=== PATIENT | female | born 1975 | race Caucasian/White ===

== ENCOUNTER → 2016-10-02 | Outpatient (CLI) | payer OTHER ==
--- NOTE | 2016-10-03 12:01 | MM ---
Reason for exam: screening (asymptomatic). Last mammogram was performed 5 years and 5 months ago. History: Taking hormonal contraceptives for 4 years. Physical Findings: A clinical breast exam by your physician is recommended on an annual basis and results should be correlated with mammographic findings. MG Screening Mammo w CAD Bilateral CC and MLO view(s) were taken. Prior study comparison: April 19, 2011, CAD bilateral diagnostic mammogram. The breast tissue is heterogeneously dense. This may lower the sensitivity of mammography. No significant changes when compared with prior studies. ASSESSMENT: Negative, BI-RAD 1 RECOMMENDATION: Routine screening mammogram of both breasts in 1 year.
== END | disposition home or self-care (01) ==
LOC: RADMAMWWP 07:51
PROVIDERS: ATTEND Obstetrics & Gynecology
DX: Z12.31 Encounter for screening mammogram for malignant neoplasm of breast (principal)

== ENCOUNTER → 2017-12-21 | Outpatient (CLI) | payer OTHER ==
--- NOTE | 2017-12-24 10:56 | MM ---
Reason for exam: screening (asymptomatic). Last mammogram was performed 1 year and 3 months ago. History: Patient has history of other cancer at age 37. Taking hormonal contraceptives for 5 years 3 months. Physical Findings: A clinical breast exam by your physician is recommended on an annual basis and results should be correlated with mammographic findings. MG Screening Mammo w CAD Bilateral CC and MLO view(s) were taken. Prior study comparison: October 02, 2016, bilateral MG screening mammo w CAD. April 19, 2011, CAD bilateral diagnostic mammogram. The breast tissue is extremely dense which could obscure a lesion on mammography. There is chronic nodularity bilaterally. There is no dominant lesion. No significant changes when compared with prior studies. ASSESSMENT: Benign, BI-RAD 2 RECOMMENDATION: Routine screening mammogram of both breasts in 1 year.
== END | disposition home or self-care (01) ==
LOC: RADMAMWWP 09:36
PROVIDERS: ATTEND Obstetrics & Gynecology
DX: Z12.31 Encounter for screening mammogram for malignant neoplasm of breast (principal)
CPT/HCPCS: 77067

== ENCOUNTER → 2019-04-24 | Outpatient (CLI) | payer BC ==
--- NOTE | 2019-04-28 10:30 | MM ---
Reason for exam: screening (asymptomatic). Last mammogram was performed 1 year and 4 months ago. History: Patient has history of other cancer at age 37. Taking hormonal contraceptives for 8 years 3 months beginning at age 35. Physical Findings: A clinical breast exam by your physician is recommended on an annual basis and results should be correlated with mammographic findings. MG 3D Screening Mammo W/Cad Bilateral CC and MLO view(s) were taken. Prior study comparison: December 21, 2017, bilateral MG screening mammo w CAD. October 02, 2016, bilateral MG screening mammo w CAD. The breast tissue is heterogeneously dense. This may lower the sensitivity of mammography. No significant changes when compared with prior studies. ASSESSMENT: Benign, BI-RAD 2 RECOMMENDATION: Routine screening mammogram of both breasts in 1 year.
== END | disposition home or self-care (01) ==
LOC: RADMAMWWP 11:17
PROVIDERS: ATTEND Obstetrics & Gynecology
DX: Z12.31 Encounter for screening mammogram for malignant neoplasm of breast (principal)
CPT/HCPCS: 77063; 77067

== ENCOUNTER → 2020-12-24 | Outpatient (CLI) | payer BC ==
--- NOTE | 2020-12-27 11:03 | MM ---
Reason for exam: screening (asymptomatic). Last mammogram was performed 1 year and 8 months ago. History: Patient has history of other cancer at age 37. Taking hormonal contraceptives for 10 years 3 months beginning at age 35. Physical Findings: A clinical breast exam by your physician is recommended on an annual basis and results should be correlated with mammographic findings. MG Screening Mammo w CAD Bilateral CC, MLO, and XCCL view(s) were taken. Prior study comparison: April 24, 2019, bilateral MG 3d screening mammo w/cad. December 21, 2017, bilateral MG screening mammo w CAD. The breast tissue is extremely dense which could obscure a lesion on mammography. There is no discrete abnormality. ASSESSMENT: Negative, BI-RAD 1 RECOMMENDATION: Routine screening mammogram of both breasts in 1 year. Some consider bilateral ultrasound surveillance in patient with extremely dense fibroglandular tissue.
== END | disposition home or self-care (01) ==
LOC: RADMAMWWP 07:55
PROVIDERS: ATTEND Obstetrics & Gynecology
DX: Z12.31 Encounter for screening mammogram for malignant neoplasm of breast (principal)
CPT/HCPCS: 77067

== ENCOUNTER → 2022-06-13 | Outpatient (CLI) | payer BC ==
--- NOTE | 2022-06-14 07:48 | MM ---
Reason for Exam: Screening (asymptomatic). Last mammogram was performed 1 year(s) and 6 month(s) ago. Patient History: Menarche at age 13. First Full-Term at age 27. Perimenopausal. Other cancer, age 37. Currently using Hormonal Contraceptives, beginning at age 35 for 10 years, 3 months. Last menstrual period: 05/13/2022 Risk Values: Angelita 5 year model risk: 0.9%. NCI Lifetime model risk: 10.5%. Prior Study Comparison: 12/21/2017 Bilateral Screening Mammogram, [facility]. 04/24/2019 Bilateral Screening Mammogram, [facility]. 12/24/2020 Bilateral Screening Mammogram, [facility]. Tissue Density: The breast tissue is extremely dense which could obscure a lesion on mammography. Findings: Analyzed By CAD. Possible new 9 mm obscured mass in the anterior aspect upper left breast on background dense tissue. Overall Assessment: Incomplete: need additional imaging evaluation, BI-RAD 0 Management: Diagnostic Breast Ultrasound of the left breast. Targeted ultrasound left breast. Electronically signed and approved by: Jaylen Yanes M.D.
== END | disposition home or self-care (01) ==
LOC: RADMAMWWP 07:39
PROVIDERS: ATTEND Obstetrics & Gynecology
DX: Z12.31 Encounter for screening mammogram for malignant neoplasm of breast (principal)
CPT/HCPCS: 77067

== ENCOUNTER → 2022-06-15 | Outpatient (CLI) | payer BC ==
--- NOTE | 2022-06-15 07:29 | USB ---
Reason for Exam: Additional evaluation requested from abnormal screening. Patient History: Menarche at age 13. First Full-Term at age 27. Perimenopausal. Other cancer, age 37. Currently using Hormonal Contraceptives, beginning at age 35 for 10 years, 3 months. Risk Values: Angelita 5 year model risk: 0.9%. NCI Lifetime model risk: 10.5%. Technique: Method: Targeted. Prior Study Comparison: 04/24/2019 Bilateral Screening Mammogram, [facility]. 12/24/2020 Bilateral Screening Mammogram, [facility]. 06/13/2022 Bilateral MG screening mammo w CAD, [facility]. Findings: The upper outer quadrant of the left breast, the axilla of the left breast and the retroareolar of the left breast were scanned. 2 simple appearing cysts are present within the 2:00 position left breast located 4 and 6 cm from the nipple. The first measures 0.7 x 0.5 x 0.7 cm. The second measures 0.9 x 0.4 x 0.7 cm. These have good through-transmission and posterior wall enhancement borders compatible with benign cysts. Overall Assessment: Benign, BI-RAD 2 Management: Screening Mammogram of both breasts in 1 year. A clinical breast exam by your physician is recommended on an annual basis and results should be correlated with mammographic findings. This exam should not preclude additional follow-up of suspicious palpable abnormalities. ??Results were given to the patient verbally at the time of exam. Electronically signed and approved by: Ry Dominique D.O. Radiologis
== END | disposition home or self-care (01) ==
LOC: RADUSWWP 07:01
PROVIDERS: ATTEND Obstetrics & Gynecology
DX: R92.8 Other abnormal and inconclusive findings on diagnostic imaging of breast (principal)

== ENCOUNTER → 2022-11-24 | Outpatient (CLI) | payer BC ==
--- NOTE | 2022-11-24 08:54 | US ---
EXAMINATION TYPE: US thyroid st tissue head/neck DATE OF EXAM: 11/24/2022 COMPARISON: NONE CLINICAL INDICATION: Female, 47 years old with history of R59.9 ENLARGED LYMPH NODES; recent trip to [place] where doctor felt palpable node on the left FINDINGS: Soft tissue scan of left lateral neck produces 3 lymph nodes right next to each other, lar gest = 1.7 x 1.0 x 0.6cm, fatty hilum with minimal vascularity noted IMPRESSION: 1. There is a series of 3 lymph nodes at the level of the palpable abnormality left neck.
== END | disposition home or self-care (01) ==
LOC: RADUSWWP 08:10
PROVIDERS: ATTEND Family Medicine
DX: R59.0 Localized enlarged lymph nodes (principal)
CPT/HCPCS: 76536

== ENCOUNTER → 2023-06-14 | Outpatient (CLI) | payer BC ==
--- NOTE | 2023-06-15 13:30 | CT ---
EXAMINATION TYPE: CT ChestAbdPelvis w con, CT soft tissue neck w con CT DLP: 684.8 (accession [id number]), 256.2 (accession [id number]) mGycm, Automated exposure control for dose reduction was used. DATE OF EXAM: 06/14/2023 3:57 PM COMPARISON: None. CLINICAL INDICATION:Female, 47 years old with history of R59.0 LYMPHADENOPATHY; PHH, enlarged lymph n odes Technique: Multiple axial images of the chest, abdomen, and pelvis were obtained. Two-dimensional cor onal and sagittal reconstructions were obtained. Standard enhanced CT of the neck. Axial sections with coronal and sagittal reformats were obtained. Contrast used:100 mL of Isovue 300 with IV Contrast, Oral contrast used: with Oral Contrast Findings: FINDINGS: Brain: Visualized portions are grossly unremarkable. Orbits: Unremarkable Sinuses: Grossly unremarkable. Spaces of the neck: Clear and symmetric. Musculoskeletal: No acute osseous pathology. Lymph nodes: Multiple nonenlarged lymph nodes are seen along both anterior chains of the neck. Vascular structures: Visualized major arteries are patent without evidence of aneurysm. Thoracic Inlet/airway: Airway is patent. The lung apices are clear. Soft tissues/Thyroid: Thyroid and remainder of the soft tissues are unremarkable. Other: none. CHEST: LUNGS/ PLEURA: The lung parenchyma appears unremarkable. AIRWAY: Patent and unremarkable. HEART: Size within normal limits. MEDIASTINUM: No gross evidence of adenopathy. VASCULATURE: No aortic aneurysm. MUSCULOSKELETAL: No acute osseous abnormalities. SOFT TISSUES/LYMPH NODES: Unremarkable. LOWER NECK: No significant findings. ABDOMEN: ABDOMEN LIVER: Unremarkable GALLBLADDER AND BILE DUCTS : The common bile duct is dilated measuring up to 9 mm. PANCREAS: Unremarkable. SPLEEN: Unremarkable. ADRENAL GLANDS: Unremarkable. KIDNEYS AND URETERS: No evidence of hydronephrosis or renal calculus. The ureters are unremarkable. PELVIS BLADDER: Unremarkable REPRODUCTIVE: Unremarkable. ABDOMEN & PELVIS STOMACH AND BOWEL: No evidence of bowel obstruction. PERITONEUM: No evidence of pneumoperitoneum or free fluid. VASCULATURE: No evidence of aortic aneurysm. MUSCULOSKELETAL: No acute osseous abnormalities LYMPH NODES: No gross evidence for lymphadenopathy. Lymph nodes within the groin bilaterally are with in normal limits for size. SOFT TISSUE/ABDOMINAL WALL: Unremarkable IMPRESSION: 1. No evidence for lymphadenopathy. Lymph nodes within the groin and neck are within normal limits f or size. 2. Dilation of the common bile duct. There may be a filling defect in the distal portion near the am dejon. Further evaluation with MRI MRCP is recommended. Correlate with signs and symptoms.
== END | disposition home or self-care (01) ==
LOC: RADCTMAIN 14:03
PROVIDERS: ATTEND Internal Medicine
DX: C43.9 Malignant melanoma of skin, unspecified (principal); K83.8 Other specified diseases of biliary tract; N30.10 Interstitial cystitis (chronic) without hematuria; R59.0 Localized enlarged lymph nodes
CPT/HCPCS: 70491; 71260; 74177; Q9967

== ENCOUNTER → 2023-06-14 | Outpatient (CLI) | payer BC ==
--- NOTE | 2023-06-18 06:42 | MM ---
Reason for Exam: Screening (asymptomatic). Last screening mammogram was performed 12 month(s) ago. Patient History: Menarche at age 13. First Full-Term at age 27. Perimenopausal. Other cancer, age 37. Currently using Hormonal Contraceptives, beginning at age 35 for 10 years, 3 months. Last menstrual period: 06/05/2023 Risk Values: Angelita 5 year model risk: 1.0%. NCI Lifetime model risk: 10.3%. Prior Study Comparison: 04/24/2019 Bilateral Screening Mammogram, [facility]. 12/24/2020 Bilateral Screening Mammogram, [facility]. 06/13/2022 Bilateral MG screening mammo w CAD, [facility]. Tissue Density: The breast tissue is heterogeneously dense. This may lower the sensitivity of mammography. Findings: Analyzed By CAD. Possible obscured nodularity laterally on the right CC view, middle depth. Otherwise, no significant change. Overall Assessment: Incomplete: need additional imaging evaluation, BI-RAD 0 Management: Special View Mammogram of the right breast. Diagnostic Breast Ultrasound of the right breast. Additional views to include spot 3-D CC, 3-D cc rolled, and 3-D ML views. Targeted right breast ultrasound if any persistent abnormality. [facility] will attempt to contact patient to return for supplemental views and ultrasound if indicated. Electronically signed and approved by: Balta Estrada M.D. Radiologist
== END | disposition home or self-care (01) ==
LOC: RADMAMWWP 16:11
PROVIDERS: ATTEND Obstetrics & Gynecology
DX: Z12.31 Encounter for screening mammogram for malignant neoplasm of breast (principal)
CPT/HCPCS: 77063; 77067

== ENCOUNTER → 2023-06-25 | Outpatient (CLI) | payer BC ==
--- NOTE | 2023-06-25 07:33 | MM ---
Reason for Exam: Additional evaluation requested from abnormal screening. Last screening mammogram was performed less than 1 month ago. Patient History: Menarche at age 13. First Full-Term at age 27. Perimenopausal. Other cancer, age 37. Currently using Hormonal Contraceptives, beginning at age 35 for 10 years, 3 months. Risk Values: Angelita 5 year model risk: 1.0%. NCI Lifetime model risk: 10.3%. Tissue Density: Right: The breast tissue is heterogeneously dense. This may lower the sensitivity of mammography. Findings: Analyzed By CAD. ASymmetric density is less conspicuous however ultrasound is recommended of the upper outer quadrant right breast. Overall Assessment: Incomplete: need additional imaging evaluation, BI-RAD 0 Management: Diagnostic Breast Ultrasound of the right breast. . Results were given to the patient verbally at the time of exam. Patient should continue monthly self-breast exams. A clinical breast exam by your physician is recommended on an annual basis. This exam should not preclude additional follow-up of suspicious palpable abnormalities. Note on Angelita scores and lifetime risk: 1. A Angelita score greater than 3% is considered moderate risk. If this is the case, consider specialist referral to assess eligibility for a risk reducing agent. 2. If overall lifetime risk for the development of breast cancer is 20% or higher, the patient may qualify for future screening with alternating mammogram and breast MRI. Electronically signed and approved by: Lambert Chiu M.D. Radiologis
--- NOTE | 2023-06-25 09:10 | USB ---
Reason for Exam: Additional evaluation requested from abnormal screening. Patient History: Menarche at age 13. First Full-Term at age 27. Perimenopausal. Other cancer, age 37. Currently using Hormonal Contraceptives, beginning at age 35 for 10 years, 3 months. Risk Values: Angelita 5 year model risk: 1.0%. NCI Lifetime model risk: 10.3%. Technique: Method: Targeted. Prior Study Comparison: 12/24/2020 Bilateral Screening Mammogram, [facility]. 06/13/2022 Bilateral MG screening mammo w CAD, [facility]. 06/14/2023 Bilateral MG 3D screening mammo w/cad, [facility]. Findings: The upper outer quadrant of the right breast, the lower outer quadrant of the right breast, the axilla of the right breast and the retroareolar of the right breast were scanned. Simple appearing cysts noted right 12:00 position 3 cm from the nipple measuring 1.2 x 1.1 x 0.6 cm. No solid masses seen.. Overall Assessment: Benign, BI-RAD 2 Management: Screening Mammogram of both breasts in 1 year. A clinical breast exam by your physician is recommended on an annual basis and results should be correlated with mammographic findings. This exam should not preclude additional follow-up of suspicious palpable abnormalities. Results were given to the patient verbally at the time of exam. Electronically signed and approved by: Lambert Chiu M.D. Radiologis
== END | disposition home or self-care (01) ==
LOC: RADMAMWWP 06:50
PROVIDERS: ATTEND Obstetrics & Gynecology
DX: R92.331 Mammographic heterogeneous density, right breast (principal); N60.01 Solitary cyst of right breast
CPT/HCPCS: 77061; 77065

== ENCOUNTER → 2023-06-27 | Outpatient (CLI) | payer BC ==
--- NOTE | 2023-06-27 13:18 | MR ---
EXAMINATION TYPE: MRI abdomen without contrast MR MRCP DATE OF EXAM: 06/27/2023 COMPARISON: CT 06/14/2023 HISTORY: 47-year-old female C43.9, Dilated Bile Duct seen on Prev CT TECHNIQUE: Multiplanar, multisequence images of the abdomen are obtained without IV contrast. Additio nal highly T2 weighted images of the pancreatic or biliary system for MRCP. Rotational 3-D reconstruc tions generated on a dedicated independent workstation. FINDINGS: The out of phase T1-weighted sequence shows diffuse drop in signal throughout the marrow compatible w ith prominent areas of red marrow. Heart normal size without pericardial effusion. Lung bases clear without pleural effusion. Liver normal size. No significant decrease in signal on opposed phase T1-weighted sequences to sugges t fatty infiltration. No focal liver lesion is seen. Gallbladder, adrenal glands, kidneys, spleen, and pancreas show no gross abnormal findings ON noncont rast MRI. Normal uniform appearance and small caliber to the main pancreatic duct. There is variant anatomy with triple confluence of the intrahepatic biliary system. There is the appe arance of segmental focal narrowing at the hepatic duct and subsequent dilatation of the main bile du ct up to 9 mm but with normal distal tapering and no abnormal internal filling defect seen. No upper abdominal lymphadenopathy or ascites fluid. Moderate stool in the visualized upper abdomen. Otherwise, no gross bowel abnormality is seen. IMPRESSION: 1. Normal anatomic variation in the biliary tree with a triple confluence. 2. There is focal narrowing at the level of the hepatic duct just below the biliary confluence follow ed by diffuse dilatation of the common bile duct up to 9 mm. There is distal tapering without any abn ormal filling defect. Findings may reflect additional anatomic variation with a type IC choledochocys t (Todani classification). Correlate with alkaline phosphatase and bilirubin levels. If laboratory va lues are normal, consider a 12 month follow-up MRCP to demonstrate stability.
== END | disposition home or self-care (01) ==
LOC: RADMRIMAIN 10:27
PROVIDERS: ATTEND Internal Medicine
DX: C43.9 Malignant melanoma of skin, unspecified (principal); K83.8 Other specified diseases of biliary tract
CPT/HCPCS: 74181

== ENCOUNTER 2023-11-20 08:05 | Day surgery (SDC) | payer BC ==
[2023-11-19 11:16] VITALS: BMI 21.7
[~2023-11-20 08:05] MED LIST: LIDOCAINE 1% (10MG/ML) FOR IV START INTRADERMA PRN
[2023-11-20] MEDS: LACTATED RINGERS 1,000 ML IV SCH (08:32)
[2023-11-20] MEDS ORDERED: PROPOFOL 10 MG/ML 20 ML VIAL IV ONE (09:10)
[2023-11-20] MEDS ORDERED: LIDOCAINE 1% INJ 10MG/ML (20 ML MDV) ONE (09:10)
[2023-11-20 09:27] VITALS: TEMP 98.9
--- NOTE | 2023-11-20 09:33 | P.PCN ---
Date of Procedure: 11/20/23 Procedure(s) Performed: BRIEF HISTORY: Patient is a 40-year-old pleasant white female scheduled for an elective colonoscopy as a part of screening for colon cancer PROCEDURE PERFORMED: Colonoscopy with snare polypectomy PREOPERATIVE DIAGNOSIS: Screening for colon cancer IV sedation per Anesthesia. PROCEDURE: After informed consent was obtained, the patient, was brought into the endoscopy unit. IV sedation was administered by Anesthesia under continuous monitoring. Digital rectal examination was normal. Initially the Olympus CF-160 flexible video colonoscope was then inserted in the rectum, gradually advanced into the cecum without any difficulty. Careful examination was performed as the scope was gradually being withdrawn. Ileocecal valve and the appendiceal orifice were visualized and appeared normal. Prep was excellent. Mucosa of the cecum had a 5 mm polyp that was removed by cold snare polypectomy. In the ascending colon there was a 5 limited polyp that was removed by cold snare polypectomy. Rest of the ascending colon, transverse colon, descending colon, sigmoid colon, and rectum appeared normal. Retroflexion was performed in the rectum and no lesions were seen. The patient tolerated the procedure well. IMPRESSION: 6 mm cecal polyp status post cold snare polypectomy 5 mm ascending colon polyp status post cold snare polypectomy Rest of the colon appeared normal RECOMMENDATIONS: Findings of this examination were discussed with the patient as well as a family. She was advised toFollow with the biopsy results. If the biopsy results adenoma she can have a repeat colonoscopy in 5 years..
[2023-11-20 10:10] VITALS: BP 110/76; PULSE 70; RESP 18
== END 2023-11-20 10:05 | disposition home or self-care (01) ==
LOC: ORWHC2ENDO 08:05
PROVIDERS: ATTEND Internal Medicine Gastroenterology
DX: Z12.11 Encounter for screening for malignant neoplasm of colon (principal); D12.0 Benign neoplasm of cecum; D12.2 Benign neoplasm of ascending colon; N30.10 Interstitial cystitis (chronic) without hematuria; F17.200 Nicotine dependence, unspecified, uncomplicated; Z91.040 Latex allergy status; Z88.2 Allergy status to sulfonamides; Z79.899 Other long term (current) drug therapy
CPT/HCPCS: 81025; 88305; 45385; J2001; J2704

== ENCOUNTER → 2024-08-25 | Outpatient (CLI) | payer SELFPAY ==
--- NOTE | 2024-08-25 16:42 | MM ---
Reason for Exam: Screening (asymptomatic). Last mammogram was performed 1 year(s) and 2 month(s) ago. Patient History: Menarche at age 13. First Full-Term at age 27. Perimenopausal. Patient has history of breast feeding. Other cancer, age 37. Hormonal Contraceptives, starting at age 35 for 10 years, 3 months. Last menstrual period: 08/21/2024 Risk Values: Angelita 5 year model risk: 1.0%. NCI Lifetime model risk: 10.2%. Prior Study Comparison: 06/13/2022 Bilateral MG screening mammo w CAD, [facility]. 06/14/2023 Bilateral MG 3D screening mammo w/cad, [facility]. 06/25/2023 Right MG 3D work up w/cad RT, [facility]. Tissue Density: The breasts are heterogeneously dense, which may obscure small masses. Findings: Analyzed By CAD. Bilateral areas of asymmetric density appear unchanged. There is no suspicious group of microcalcifications or new suspicious mass in either breast. Overall Assessment: Benign, BI-RAD 2 Management: Screening Mammogram of both breasts in 1 year. Patient should continue monthly self-breast exams. A clinical breast exam by your physician is recommended on an annual basis. This exam should not preclude additional follow-up of suspicious palpable abnormalities. Note on Angelita scores and lifetime risk: 1. A Angelita score greater than 3% is considered moderate risk. If this is the case, consider specialist referral to assess eligibility for a risk reducing agent. 2. If overall lifetime risk for the development of breast cancer is 20% or higher, the patient may qualify for future screening with alternating mammogram and breast MRI. [facility], , 08/25/2024 4:39 PM. Electronically signed and approved by: Balta Estrada M.D. Radiologist
== END | disposition home or self-care (01) ==
LOC: RADMAMWWP 15:55
PROVIDERS: ATTEND Obstetrics & Gynecology
DX: Z12.31 Encounter for screening mammogram for malignant neoplasm of breast (principal); R92.333 Mammographic heterogeneous density, bilateral breasts
CPT/HCPCS: 77063; 77067

== ENCOUNTER → 2024-10-16 | Outpatient (CLI) | payer BC ==
--- NOTE | 2024-10-16 08:58 | MR ---
EXAMINATION TYPE: MR MRCP DATE OF EXAM: 10/16/2024 8:45 AM COMPARISON: 06/27/2023. CLINICAL INDICATION: Female, 49 years old with history of K83.8 OTHER SPECIFIED DISEASES OF BILIARY T RACT; PHH, Dilated bile duct. F/U comparison to MRCP 06-27-23. TECHNIQUE: Multi planar, T2-weighted imaging with and without fat saturation and chemical shift imag ing was performed of the abdomen. Then, heavily T2 weighted imaging (half-Fourier acquisition single- shot turbo spin-echo) was utilized in order to study the biliary system. Maximum intensity projectio n images were reconstructed from the original data of the biliary tree. 3D images were created on a [employer] work station. No Gadolinium given. FINDINGS: Lower Thorax: No evidence for acute process. MRCP: * The intrahepatic ducts have mild dilation central portions.. * The extrahepatic ducts are mildly dilated tortuous appearance just after the confluence of the rig ht and left bile ducts. Findings not significantly changed from prior measuring up to 9 mm and the co mmon bile duct. * The common hepatic duct measures 8 mm in size. * The common bile duct at the level of the pancreatic head measures 9 mm in size. * The pancreatic duct is normal. * The gallbladder appears unremarkable. Abdomen: Liver: No evidence for hepatic steatosis or cirrhosis. Pancreas: No ductal dilation. No evidence for solid mass. Spleen: Normal for size. Adrenal glands: Unremarkable. Kidneys: No evidence for obstructive uropathy. No suspicious renal masses. Stomach and Bowel: No evidence for bowel wall thickening or evidence for obstruction. Retroperitoneum/Peritoneum: No evidence of pneumoperitoneum or free fluid. Vasculature: No aortic aneurysm. Musculoskeletal: The osseous structures appear intact. Lymph Nodes: No gross evidence for lymphadenopathy. Abdominal wall: Unremarkable. IMPRESSION: Stable dilation of the extra hepatic biliary system and central intrahepatic system. No evidence to s uggest ductal stricture or choledocholithiasis. [facility], , 10/16/2024 8:55 AM
== END | disposition home or self-care (01) ==
LOC: RADMRIMAIN 08:05
PROVIDERS: ATTEND Family Medicine
DX: K83.8 Other specified diseases of biliary tract (principal)
CPT/HCPCS: 74181